=== PATIENT | male | born 1930 | race Caucasian/White ===

== ENCOUNTER 2018-01-25 09:57 | Day surgery (SDC) | payer MEDICARE, BC ==
[2018-01-25] VITALS (15 sets, daily range): BP systolic 111–162; BP diastolic 48–83
[~2018-01-25] VITALS: Ht 177.8 cm; Wt 69.9 kg
[2018-01-25] MEDS ORDERED: sod bicarbonate 150mEq in D5W 1,150 ML IV ONE (10:25)
[2018-01-25] MEDS ORDERED: diphenhydrAMINE 25mg capsule PO PRN (10:25)
[2018-01-25] MEDS ORDERED: MELATONIN PO (11:10)
[2018-01-25] MEDS ORDERED: ACET-2615 PO (11:10)
[2018-01-25] MEDS ORDERED: DOCU-28 PO (11:10)
[2018-01-25] MEDS ORDERED: [UNRECOGNIZED DRUG - OTHER] PO (11:10)
[2018-01-25] MEDS ORDERED: ASPI-611 PO (11:10)
[2018-01-25] MEDS ORDERED: iohexol 350MG/ML 100ml bottle IV ONE ×2 (11:32→12:29)
[2018-01-25] MEDS ORDERED: LIDOcaine 1% (10mg/ml)w/preservative injection 20ml MDV ONE (11:32)
[2018-01-25] MEDS ORDERED: fentaNYL/PF 50MCG/1 ML 2ML syringe ONE (11:32)
[2018-01-25] MEDS ORDERED: iohexol 350 MG/ML 50ML vial IV ONE (11:32)
[2018-01-25] MEDS ORDERED: midazolam 2 mg/2 ml injection ONE (11:32)
[2018-01-25] MEDS ORDERED: verapamil 2.5 mg/ml inj IV ONE (11:38)
[2018-01-25] MEDS ORDERED: nitroGLYCERIN-Tridil 50MG/D5W 250 ML IV ONE (11:38)
[2018-01-25] MEDS ORDERED: heparin 1,000unit/ml 10ml vial 10 ML ONE (11:38)
[2018-01-25 11:40] LABS: BASOPHILS % (AUTO) 0.1 % (0-1); EOSINOPHILS # (AUTO) 0.1 X10'3 (0-0.9); HEMATOCRIT 33.2 % (42.0-52.0); HEMOGLOBIN 11.1 g/dl (14.0-17.9); LYMPHOCYTES # (AUTO) 0.7 X10'3 (1.1-4.8); LYMPHOCYTES % (AUTO) 12.6 % (21-51); MEAN CORPUSCULAR HEMOGLOBIN 28.5 PG (27.0-31.0); MEAN CORPUSCULAR HGB CONC 33.3 % (33.0-36.5); MEAN CORPUSCULAR VOLUME 85.5 FL (78-98); MONOCYTES # (AUTO) 0.6 X10'3 (0-0.9); MONOCYTES % (AUTO) 9.4 % (2-12); NEUTROPHILS # (AUTO) 4.4 X10'3 (1.8-7.7); NEUTROPHILS % (AUTO) 75.9 % (42-75); PLATELET COUNT 253 X10'3 (140-440); RED BLOOD COUNT 3.88 X10'6 (4.70-6.10); RED CELL DISTRIBUTION WIDTH 14.6 % (11.5-14.5); WHITE BLOOD COUNT 5.9 X10'3 (4.5-11.0)
[2018-01-25 11:56] LABS: ANION GAP 9 (8-16); BLOOD UREA NITROGEN 15 MG/DL (7-18); BUN/CREATININE RATIO 17.6 (5.4-32.0); CALCIUM 9.2 MG/DL (8.5-10.1); CHLORIDE 102 MMOL/L (99-107); CREATININE 0.85 MG/DL (0.60-1.10); GLUCOSE 102 MG/DL (70-104); POTASSIUM 3.9 MMOL/L (3.5-5.1); SODIUM 137 MMOL/L (135-145); TOTAL CARBON DIOXIDE 26.2 MMOL/L (24-32); eGFR 85 ML/MIN
[2018-01-25 12:05] LABS: INR 1.1 INR; PROTHROMBIN TIME 10.7 SECONDS (9.0-12.0)
[2018-01-25] MEDS ORDERED: clopidogrel 300mg tablet ONE (13:10)
[2018-01-25] MEDS ORDERED: aspirin 325mg tablet ONE (13:11)
== END 2018-01-25 17:15 | disposition home or self-care (01) ==
LOC: SSTAY O 09:57
PROVIDERS: ATTEND Internal Medicine Cardiovascular Disease
DX: I25.118 Atherosclerotic heart disease of native coronary artery with other forms of angina pectoris (principal); M19.90 Unspecified osteoarthritis, unspecified site; E78.5 Hyperlipidemia, unspecified; I48.0 Paroxysmal atrial fibrillation; G89.29 Other chronic pain; Z98.41 Cataract extraction status, right eye; Z96.641 Presence of right artificial hip joint; Z79.82 Long term (current) use of aspirin; Z95.0 Presence of cardiac pacemaker; Z91.048 Other nonmedicinal substance allergy status; Z79.891 Long term (current) use of opiate analgesic; Z87.891 Personal history of nicotine dependence; Z93.3 Colostomy status; Z85.048 Personal history of other malignant neoplasm of rectum, rectosigmoid junction, and anus; Z88.8 Allergy status to other drugs, medicaments and biological substances; Z79.899 Other long term (current) drug therapy; Z98.890 Other specified postprocedural states
CPT/HCPCS: 36415; 80048; 83735; 85025; 85610; 93005; 93454; 99152; 99153; A6257; C1874; C9600; J1644; J2001; J2250; J3010; Q0163; Q9967; A4620; C1725; C1769; C1894; J3490